=== PATIENT | male | born 1975 | race Caucasian/White ===

== ENCOUNTER 2018-08-17 11:43 | Observation (INO) ==
[2018-08-17] MEDS ORDERED: ASPIRIN 325 MG TABLET PO STA (12:33)
[2018-08-17] MEDS ORDERED: ENOXAPARIN 100 MG/ML SYRINGE SUBCUT STA (12:33)
[2018-08-17 12:48] LABS: Basophils # 0.1 10*3/uL (0.0-0.2); Basophils % 0.7 % (0.0-0.8); Eosinophils # 0.9 10*3/uL (0.0-0.87); Eosinophils % 9.3 % (0.00-10.9); Hematocrit 43.5 VOL% (42.0-52.0); Hemoglobin 14.4 GM/DL (14.0-18.0); Immature Granulocytes % 0.3 %; Immature Granulocytes Absolute 0.03 #; Lymphocytes # 2.1 10*3/uL (1.4-4.0); Lymphocytes % 22.4 % (21.2-54.2); Mean Corpuscular HGB Conc 33.1 GM/DL (32-36); Mean Corpuscular Hemoglobin 29 PG (27-34); Mean Corpuscular Volume 87.9 FL (87-102); Mean Platelet Volume 9.9 FL (9.6-12.0); Monocytes # 0.8 10*3/uL (0.11-0.8); Monocytes % 7.9 % (1.7-12.7); Neutrophils # 5.7 10*3/uL (1.4-7.4); Neutrophils % 59.4 % (38.7-73.9); Platelet Count 365 T/CUMM (130-400); Red Blood Count 4.95 MC/CUMM (3.8-5.5); Red Cell Distribution Width 13.5 % (9.3-17.3); White Blood Count 9.5 T/CUMM (4-12)
[2018-08-17 13:04] LABS: Albumin 3.9 G/DL (3.4-5.0); Bilirubin,Total 0.6 MG/DL (0.2-1.0); Calcium 8.6 MG/DL (8.5-10.1); Osmolality,Calculated 278.7 MOS/KG (273-304); Potassium 3.4 MMOL/L (3.5-5.1); Total Protein 7.6 G/DL (6.4-8.3)
[2018-08-17] MEDS ORDERED: ACETAMINOPHEN 325 MG TABLET PO PRN (14:16)
[2018-08-17] MEDS ORDERED: MORPHINE 4 MG/1 ML VIAL IV PRN (14:16)
[2018-08-17] MEDS ORDERED: ONDANSETRON 4 MG/2 ML VIAL IV PRN (14:16)
[2018-08-17] MEDS ORDERED: hydrALAZINE 20 MG/1 ML VIAL IV PRN (14:20)
[2018-08-17] MEDS ORDERED: ASPIRIN EC 325 MG TABLET PO PRN (14:21)
[2018-08-17] MEDS ORDERED: NITROGLYCERIN 2% OINT 1 INCH/GM PACK TOP STA (14:21)
[2018-08-17] MEDS ORDERED: hydroCHLOROthiazide 25 MG TABLET PO SCH (14:30)
[2018-08-17] MEDS ORDERED: VANCOMYCIN INJ 1,000 MG in SODIUM CHLORIDE 0.9% 250 ML IV SCH (14:30)
[2018-08-17] MEDS ORDERED: LISINOPRIL 20 MG TABLET PO SCH (14:30)
[2018-08-17] MEDS ORDERED: ENOXAPARIN 40 MG/0.4 ML SYRINGE SUBCUT SCH (14:30)
[2018-08-17] MEDS ORDERED: MAGNESIUM SULF RIDER 4 GM in PREMIX 1 EACH IV PRN (14:34)
[2018-08-17] MEDS ORDERED: MAGNESIUM SULF RIDER 2 GM in PREMIX 1 EACH IV PRN (14:34)
[2018-08-17] MEDS ORDERED: POTASSIUM CHLORIDE RIDER 10 MEQ in PREMIX 1 EACH IV PRN (14:34)
[2018-08-17 14:48] LABS: Risk Ratio 4.5; VLDL CHOLESTEROL 23.8 MG/DL
[2018-08-17 15:52] LABS: Troponin I 0.037 NG/ML (0.00-0.045)
[2018-08-17] MEDS ORDERED: POTASSIUM CHLORIDE 20 MEQ TABLET PO ONE (16:30)
[2018-08-17] MEDS: LOSARTAN/HCTZ 50-12.5 MG TABLET PO SCH (17:46)
[2018-08-17] MEDS: METOPROLOL TARTRATE 25 MG TABLET PO SCH ×2 (17:46→21:44)
[2018-08-17] MEDS: CHLORHEXIDINE 4% SOLN 118 ML BOTTLE TOP SCH (18:23)
[2018-08-17] MEDS: NITROGLYCERIN 2% OINT 1 INCH/GM PACK TOP SCH ×2 (18:24→23:07)
[2018-08-17] MEDS: COLLAGENASE OINT 30 GM TUBE TOP SCH (18:24)
[2018-08-17] MEDS: methylPREDNISolone SOD SUC 40 MG/1 ML VIAL IV SCH (18:39)
[2018-08-17] MEDS: ceFAZolin 1,000 MG in SYRINGE 1 EACH IV SCH (18:39)
[2018-08-17] MEDS: SODIUM CHLORIDE 0.9% 1,000 ML IV SCH (18:39)
[2018-08-17 19:10] LABS: Troponin I 0.028 NG/ML (0.00-0.045)
[2018-08-17] MEDS: ALBUTEROL/IPRATROPIUM 3 ML NEB RESP TX SCH (19:44)
[2018-08-17] MEDS ORDERED: ATORVASTATIN 20 MG TABLET PO SCH (21:00)
[2018-08-17] MEDS ORDERED: MONTELUKAST 10 MG TABLET PO SCH (21:00)
[2018-08-17] MEDS ORDERED: AMOXICILLIN 500 MG CAPSULE PO SCH (21:00)
[2018-08-17] MEDS ORDERED: CARVEDILOL 12.5 MG TABLET PO SCH (21:00)
[2018-08-17 22:02] LABS: Troponin I 0.022 NG/ML (0.00-0.045)
[2018-08-18] MEDS: ALBUTEROL/IPRATROPIUM 3 ML NEB RESP TX SCH ×2 (01:53→07:02)
[2018-08-18] MEDS: ceFAZolin 1,000 MG in SYRINGE 1 EACH IV SCH ×2 (01:54→09:23)
[2018-08-18] MEDS: methylPREDNISolone SOD SUC 40 MG/1 ML VIAL IV SCH ×2 (02:00→09:28)
[2018-08-18 04:05] LABS: Basophils % 0.2 % (0.0-0.8); Eosinophils % 0.1 % (0.00-10.9); Hematocrit 45.5 VOL% (42.0-52.0); Hemoglobin 14.6 GM/DL (14.0-18.0); Immature Granulocytes % 0.4 %; Immature Granulocytes Absolute 0.05 #; Lymphocytes # 1.2 10*3/uL (1.4-4.0); Lymphocytes % 8.6 % (21.2-54.2); Mean Corpuscular HGB Conc 32.1 GM/DL (32-36); Mean Corpuscular Hemoglobin 29 PG (27-34); Mean Corpuscular Volume 89.2 FL (87-102); Mean Platelet Volume 9.7 FL (9.6-12.0); Monocytes # 0.2 10*3/uL (0.11-0.8); Monocytes % 1.7 % (1.7-12.7); Neutrophils # 11.8 10*3/uL (1.4-7.4); Platelet Count 404 T/CUMM (130-400); Red Cell Distribution Width 13.3 % (9.3-17.3); White Blood Count 13.3 T/CUMM (4-12)
[2018-08-18 04:43] LABS: Calcium 8.8 MG/DL (8.5-10.1); Osmolality,Calculated 276.8 MOS/KG (273-304); Potassium 4.1 MMOL/L (3.5-5.1)
[2018-08-18] MEDS: SODIUM CHLORIDE 0.9% 1,000 ML IV SCH ×2 (05:15→10:40)
[2018-08-18] MEDS: NITROGLYCERIN 2% OINT 1 INCH/GM PACK TOP SCH ×2 (05:16→14:01)
[2018-08-18] MEDS ORDERED: GLUCAGON 1 MG VIAL IM PRN (07:57)
[2018-08-18] MEDS ORDERED: DEXTROSE 50% 25 GM/50 ML VIAL IV PRN (07:57)
[2018-08-18] MEDS ORDERED: metFORMIN 500 MG TABLET PO SCH (08:00)
[2018-08-18 08:57] VITALS: BP 135/87
[2018-08-18] MEDS ORDERED: ASPIRIN 325 MG TABLET PO SCH (09:00)
[2018-08-18] MEDS ORDERED: PANTOPRAZOLE 40 MG TABLET PO SCH (09:00)
[2018-08-18] MEDS ORDERED: ENOXAPARIN 40 MG/0.4 ML SYRINGE SUBCUT SCH (09:00)
[2018-08-18] MEDS: METOPROLOL TARTRATE 25 MG TABLET PO SCH (09:23)
[2018-08-18] MEDS ORDERED: LOSARTAN 50 MG TABLET PO SCH (09:30)
[2018-08-18] MEDS ORDERED: hydroCHLOROthiazide 12.5 MG CAPSULE PO SCH (09:30)
[2018-08-18] MEDS: CHLORHEXIDINE 4% SOLN 118 ML BOTTLE TOP SCH (09:48)
[2018-08-18] MEDS: COLLAGENASE OINT 30 GM TUBE TOP SCH (09:48)
[2018-08-18] MEDS: LOSARTAN/HCTZ 50-12.5 MG TABLET PO SCH (10:09)
[2018-08-18] MEDS ORDERED: INSULIN REGULAR 100 UNIT/ML SUBCUT SCH (11:30)
== END 2018-08-18 14:10 | disposition home or self-care (01) ==
LOC: N.EDINP 11:43 → N.ED 11:43 → SUATTDRO 14:16 → N.EDINP 16:08 → N.TELES 16:12
PROVIDERS: ADMIT Internal Medicine; ATTEND Internal Medicine Nephrology

== ENCOUNTER 2020-09-13 14:32 | Observation (INO) ==
[2020-09-13] MEDS ORDERED: ASPIRIN 325 MG TABLET PO STA (15:23)
[2020-09-13 15:31] LABS: Basophils # 0.1 10*3/uL (0.0-0.2); Basophils % 0.8 % (0.0-0.8); Eosinophils # 0.4 10*3/uL (0.0-0.87); Hematocrit 44.9 VOL% (42.0-52.0); Hemoglobin 15.3 GM/DL (14.0-18.0); Immature Granulocytes % 0.4 %; Immature Granulocytes Absolute 0.04 #; Lymphocytes # 2.8 10*3/uL (1.4-4.0); Lymphocytes % 30.4 % (21.2-54.2); Mean Corpuscular HGB Conc 34.1 GM/DL (32-36); Mean Corpuscular Volume 86.7 FL (87-102); Mean Platelet Volume 9.9 FL (9.6-12.0); Monocytes % 7.9 % (1.7-12.7); Neutrophils % 56.5 % (38.7-73.9); Platelet Count 342 T/CUMM (130-400); Red Blood Count 5.18 MC/CUMM (3.8-5.5); Red Cell Distribution Width 13.2 % (9.3-17.3); White Blood Count 9.3 T/CUMM (4-12)
[2020-09-13] MEDS ORDERED: LABETALOL 20 MG/4 ML SYRINGE IV STA (15:33)
[2020-09-13 15:38] LABS: INR 0.9
[2020-09-13 15:44] LABS: Bilirubin,Total 0.7 MG/DL (0.2-1.0); Calcium 9.4 MG/DL (8.5-10.1); Potassium 3.5 MMOL/L (3.5-5.1); Total Protein 7.9 G/DL (6.4-8.3)
[2020-09-13] MEDS ORDERED: diphenhydrAMINE CAP 25 MG CAPSULE PO PRN (16:39)
[2020-09-13] MEDS ORDERED: guaiFENesin/DM ER 600-30 MG TABLET PO PRN (16:39)
[2020-09-13] MEDS ORDERED: NICOTINE 21 MG/24 HR PATCH TRANSDERM PRN (16:39)
[2020-09-13] MEDS ORDERED: GLUCAGON 1 MG VIAL IM PRN ×2 (16:39)
[2020-09-13] MEDS ORDERED: ONDANSETRON 4 MG/2 ML VIAL IV PRN (16:39)
[2020-09-13] MEDS ORDERED: BISACODYL 5 MG TABLET PO PRN (16:39)
[2020-09-13] MEDS ORDERED: ACETAMINOPHEN 325 MG TABLET PO PRN (16:39)
[2020-09-13] MEDS ORDERED: DEXTROSE 50% 25 GM/50 ML VIAL IV PRN ×2 (16:39)
[2020-09-13] MEDS ORDERED: CALCIUM CARBONATE CHEW 500 MG TABLET PO PRN (16:39)
[2020-09-13] MEDS ORDERED: ALUMINUM/MAGNES/SIMETH MAX STR 30 ML UDCUP PO PRN (16:39)
[2020-09-13] MEDS ORDERED: ALBUTEROL/IPRATROPIUM 3 ML NEB RESP TX PRN (16:39)
[2020-09-13] MEDS ORDERED: hydrALAZINE 20 MG/1 ML VIAL IV PRN (16:39)
[2020-09-13] MEDS ORDERED: ZALEPLON 5 MG CAPSULE PO PRN (16:39)
[2020-09-13] MEDS ORDERED: SIMETHICONE CHEW 125 MG TABLET PO PRN (16:39)
[2020-09-13] MEDS ORDERED: NITROGLYCERIN SL 0.4 MG TABLET SL PRN (16:49)
[2020-09-13] MEDS ORDERED: amLODIPine 10 MG TABLET PO ONE (17:00)
[2020-09-13] MEDS: METOPROLOL TARTRATE 25 MG TABLET PO SCH ×2 (17:58→20:46)
[2020-09-13] MEDS: ENOXAPARIN 40 MG/0.4 ML SYRINGE SUBCUT SCH (18:01)
[2020-09-13] MEDS ORDERED: INFLUENZA VIRUS VACCINE 0.5 ML SYRINGE IM ONE (18:38)
[2020-09-13] MEDS: ATORVASTATIN 40 MG TABLET PO SCH (20:45)
[2020-09-13] MEDS: PANTOPRAZOLE 40 MG VIAL IV SCH (20:45)
[2020-09-13] MEDS: INSULIN LISPRO 100 UNIT/ML SUBCUT SCH (21:41)
[2020-09-14 05:34] LABS: Basophils # 0.1 10*3/uL (0.0-0.2); Basophils % 0.9 % (0.0-0.8); Eosinophils # 0.4 10*3/uL (0.0-0.87); Eosinophils % 4.8 % (0.00-10.9); Hematocrit 42.3 VOL% (42.0-52.0); Hemoglobin 14.3 GM/DL (14.0-18.0); Immature Granulocytes % 0.3 %; Immature Granulocytes Absolute 0.03 #; Lymphocytes # 3.2 10*3/uL (1.4-4.0); Lymphocytes % 34.6 % (21.2-54.2); Mean Corpuscular HGB Conc 33.8 GM/DL (32-36); Mean Corpuscular Volume 89.1 FL (87-102); Monocytes % 9.5 % (1.7-12.7); Neutrophils % 49.9 % (38.7-73.9); Platelet Count 309 T/CUMM (130-400); Red Blood Count 4.75 MC/CUMM (3.8-5.5); Red Cell Distribution Width 13.3 % (9.3-17.3); White Blood Count 9.2 T/CUMM (4-12)
[2020-09-14 06:10] LABS: Calcium 8.6 MG/DL (8.5-10.1); Osmolality,Calculated 281.8 MOS/KG (273-304); Potassium 3.2 MMOL/L (3.5-5.1)
[2020-09-14] MEDS ORDERED: amLODIPine 10 MG TABLET PO SCH (09:00)
[2020-09-14] MEDS ORDERED: glipiZIDE 10 MG TABLET PO SCH (09:00)
[2020-09-14] MEDS: METOPROLOL TARTRATE 25 MG TABLET PO SCH (09:10)
[2020-09-14] MEDS: CHOLECALCIFEROL 5,000 UNIT TABLET PO SCH (09:10)
[2020-09-14] MEDS: PANTOPRAZOLE 40 MG VIAL IV SCH ×2 (09:10→21:50)
[2020-09-14] MEDS: INSULIN LISPRO 100 UNIT/ML SUBCUT SCH ×4 (09:10→21:50)
[2020-09-14] MEDS ORDERED: POTASSIUM CHLORIDE 20 MEQ TABLET PO ONE (13:24)
[2020-09-14] MEDS: ENOXAPARIN 40 MG/0.4 ML SYRINGE SUBCUT SCH (16:26)
[2020-09-14] MEDS: METOPROLOL TARTRATE 50 MG TABLET PO SCH (21:51)
[2020-09-14] MEDS: ATORVASTATIN 40 MG TABLET PO SCH (21:51)
[2020-09-14] MEDS: metFORMIN 500 MG TABLET PO SCH (21:51)
[2020-09-15] MEDS: MORPHINE 4 MG/1 ML VIAL IV PRN ×2 (02:35→06:47)
[2020-09-15] MEDS ORDERED: ALUM/MAG/SIMETH/LIDO VISC 1:1 30 ML BOTTLE PO STA (03:06)
[2020-09-15 06:41] LABS: Basophils # 0.1 10*3/uL (0.0-0.2); Basophils % 0.9 % (0.0-0.8); Eosinophils # 0.5 10*3/uL (0.0-0.87); Eosinophils % 5.4 % (0.00-10.9); Hematocrit 44.3 VOL% (42.0-52.0); Hemoglobin 14.6 GM/DL (14.0-18.0); Immature Granulocytes % 0.3 %; Immature Granulocytes Absolute 0.03 #; Lymphocytes # 3.4 10*3/uL (1.4-4.0); Mean Platelet Volume 10.3 FL (9.6-12.0); Monocytes % 7.1 % (1.7-12.7); Neutrophils % 52.3 % (38.7-73.9); Platelet Count 321 T/CUMM (130-400); Red Blood Count 4.92 MC/CUMM (3.8-5.5); Red Cell Distribution Width 13.5 % (9.3-17.3); White Blood Count 9.9 T/CUMM (4-12)
[2020-09-15 06:53] LABS: Calcium 8.6 MG/DL (8.5-10.1); Osmolality,Calculated 282.5 MOS/KG (273-304); Potassium 3.8 MMOL/L (3.5-5.1)
[2020-09-15] MEDS: metFORMIN 500 MG TABLET PO SCH (08:27)
[2020-09-15] MEDS: METOPROLOL TARTRATE 50 MG TABLET PO SCH (08:27)
[2020-09-15] MEDS: PANTOPRAZOLE 40 MG VIAL IV SCH (08:27)
[2020-09-15] MEDS: CHOLECALCIFEROL 5,000 UNIT TABLET PO SCH (08:27)
[2020-09-15] MEDS: INSULIN LISPRO 100 UNIT/ML SUBCUT SCH ×2 (08:32→11:49)
[2020-09-15] MEDS ORDERED: LOSARTAN 25 MG TABLET PO SCH (09:00)
[2020-09-15] MEDS ORDERED: ASPIRIN EC 81 MG TABLET PO SCH (09:00)
[2020-09-15] MEDS ORDERED: ATORVASTATIN 20 MG TABLET PO SCH (09:00)
[2020-09-15] MEDS ORDERED: SPIRONOLACTONE 25 MG TABLET PO SCH (09:00)
[2020-09-15] MEDS ORDERED: METOPROLOL TARTRATE 25 MG TABLET PO SCH (09:00)
[2020-09-15] MEDS ORDERED: LOSARTAN 50 MG TABLET PO SCH (09:00)
[2020-09-15 11:24] VITALS: BP 137/86
[2020-09-15 16:22] LABS: Barbiturates Screen,Urine Negative (Negative); Benzodiazepines Screen,Urine Negative (Negative); Cannabinoid Screen,Urine Negative (Negative); Opiate Screen,Urine Positive (Negative); Phencyclidine Screen,Urine Negative (Negative)
== END 2020-09-15 12:50 | disposition home or self-care (01) ==
LOC: N.EDINP 14:32 → N.ED 14:32 → SUATTDRO 16:39 → N.TELEN 17:35
PROVIDERS: ADMIT Internal Medicine; ATTEND Internal Medicine